=== PATIENT | male | born 1960 | race Caucasian/White ===

== ENCOUNTER 2021-12-16 12:42 | Emergency (ER) | payer SELFPAY ==
[~2021-12-16] VITALS: Ht 167.6 cm; Wt 79.4 kg
--- NOTE | 2021-12-16 12:50 | NUR ---
wheelchair assisted to bed 09
[2021-12-16 13:16] VITALS: BP 149/59
--- NOTE | 2021-12-16 13:18 | NUR ---
PT C/O RIGHT SIDED GROIN PAIN S/P LIFTING BOXES AT WORK.
[2021-12-16] MEDS ORDERED: KETOROLAC 30 MG/ML VIAL IVP ONE (14:25)
[2021-12-16 14:56] LABS: BASOPHILS % (AUTO) 0.1 % (0.0-2.0); EOSINOPHILS # (AUTO) 0.1 K/uL (0-0.4); EOSINOPHILS % (AUTO) 0.4 % (0.0-4.0); HEMATOCRIT 40.5 % (36-52); HEMOGLOBIN 14.1 g/dL (12.0-18.0); LYMPHOCYTES # (AUTO) 0.9 K/uL (2.0-11.5); MEAN CORPUSCULAR HEMOGLOBIN 31 pg (27-31); MEAN CORPUSCULAR HGB CONC 35 g/dL (33-37); MEAN CORPUSCULAR VOLUME 89.6 fL (80-94); MONOCYTES # (AUTO) 0.8 K/uL (0.8-1.0); NEUTROPHILS # (AUTO) 13.5 K/uL (1.8-7.7); NEUTROPHILS % (AUTO) 88.5 % (42.2-75.2); PLATELET COUNT (AUTO) 187 K/uL (140-450); RED BLOOD CELL COUNT(AUTO) 4.52 MIL/uL (4.20-6.10); RED CELL DISTRIBUTION WIDTH 13.7 % (11.6-13.7); WHITE BLOOD COUNT (AUTO) 15.2 K/uL (4.8-10.8)
[2021-12-16 15:03] LABS: ALBUMIN 3.6 g/dL (3.4-5.0); CARBON DIOXIDE 25.9 mmol/L (21-32); CREATININE 1.2 mg/dL (0.6-1.3); POTASSIUM 3.9 mmol/L (3.5-5.1); TOTAL BILIRUBIN 0.6 mg/dL (0.0-1.0)
[2021-12-16 15:47] LABS: APPEARANCE,URINE CLEAR (CLEAR); BILIRUBIN,URINE NEGATIVE (NEGATIVE); BLOOD, URINE NEGATIVE (NEGATIVE); COLOR,URINE YELLOW (YELLOW); LEUKOCYTE ESTERASE ,URINE NEGATIVE (NEGATIVE); NITRITE, URINE NEGATIVE (NEGATIVE); UGLUCOSE NEGATIVE (NEGATIVE)
[2021-12-16] MEDS ORDERED: ACET-8386 PO (16:39)
[2021-12-16] MEDS ORDERED: METR-435 PO (16:39)
[2021-12-16] MEDS ORDERED: CIPR500T4 PO (16:39)
[2021-12-16] MEDS ORDERED: IBUP-2213 PO (16:39)
[2021-12-16 16:45] LABS: WBC,URINE 0-5 /HPF (0-5)
[2021-12-16 17:05] VITALS: BP 121/70
--- NOTE | 2021-12-16 17:05 | NUR ---
Patient discharged with v/s stable. Written and verbal after care instructions given and explained. Patient alert, oriented and verbalized understanding of instructions. Ambulatory with steady gait. All questions addressed prior to discharge. ID band removed. Patient advised to follow up with PMD. Rx of CIPRO, FLAGYL, NORCO, MOTRIN given. Patient educated on indication of medication including possible reaction and side effects. Opportunity to ask questions provided and answered.
== END 2021-12-16 17:05 | disposition home or self-care (01) ==
LOC: MED 12:42
DX: K57.92 Diverticulitis of intestine, part unspecified, without perforation or abscess without bleeding (principal); K40.90 Unilateral inguinal hernia, without obstruction or gangrene, not specified as recurrent
CPT/HCPCS: 36415; 74176; 80053; 81001; 83690; 85025; 96374; 99284; J1885